=== PATIENT | male | born 2000 | race American Indian/Alaskan Native ===

== ENCOUNTER 2023-11-23 11:56 | Emergency (ER) | payer OTHER, BC, SELFPAY ==
[2023-11-23 12:03] VITALS: BP 152/82; PULSE 76; RESP 18; TEMP 36.8; O2SAT 99; BMI 27.3
--- NOTE | 2023-11-23 12:13 | XR_ITS ---
Patient: MARIA L LEWIS Facility:?[facility] Patient ID:?[id number] Site Patient ID:?[id number]. Site :?[id number] Study:?XRay-Extremity Right 3V KNEE-11/23/2023 1:05:55 PM Ordering Physician:?DR. BRUCE Final Report: Indication: Knee injury Technique: Three views Comparison: None Findings/Impression: Bones: Linear ossific density near the medial femoral condyle suggestive of a medial collateral ligament avulsion. Minimal ossific density at the lateral aspect of the patellofemoral joint consistent with dystrophic calcification or age-indeterminate avulsion fragment. Joint spaces: No dislocation. Soft tissues: Mild medial soft tissue swelling. Dictated by Ubaldo Alexander MD @ 11/23/2023 1:13:13 PM Signed by:?Ubaldo Alexander MD @11/23/2023 1:13:13 PM (Electronic Signature)
--- NOTE | 2023-11-23 12:18 | ED.GENADULT ---
HPI - General Adult General Date Seen: 11/23/23 Chief complaint: Extremity Pain/Injury, Lower Stated complaint: knee injury Time Seen by Provider: 11/23/23 12:08 Source: patient Mode of arrival: ambulatory Limitations: no limitations History of Present Illness HPI narrative: Patient is a 23-year-old male with a history of patellar tendon repair, he is not sure exactly when that was done or who did it, only that it was done in [place]. Today he was getting out of a tractor, planted his foot and then twisted his knee. He complains of medial knee pain by the incision of his surgery. He is worried about damage to the repair. No significant swelling. No other injuries or complaints. Related Data Home Medications Medication Instructions Recorded Confirmed No Known Home Medications 11/23/23 11/23/23 Allergies Allergy/AdvReac Type Severity Reaction Status Date / Time No Known Drug Allergies Allergy Verified 11/23/23 12:06 PFSH PFSH Social History Smoking Status: Never smoker Do you use any of these nicotine containing products: None Second hand tobacco smoke exposure: No How often do you have a drink containing alcohol: never AUDIT-C Alcohol total score: 0 Non-prescribed substance use: denies use Exam Narrative: Exam Narrative: Vital signs reviewed In general, alert, nontoxic male. Looks comfortable. Ambulatory. Extremities: Examination of the right knee shows a well-healed incision over the medial knee, some tenderness right over that incision. Otherwise the knee is nontender, patellar tendon is normal to palpation without tenderness or defect. He has full active range of motion of the knee. There is no effusion. Const: Vital Signs, click to edit/add: Vital Signs - 24 hr 11/23/23 12:03 Temperature 98.3 F Pulse Rate [Right Pulse Oximeter] 76 Respiratory Rate 18 Blood Pressure [Ri ght Upper Arm] 152/82 H Pulse Oximetry 99 Oxygen Delivery Me thod Room Air Documenting provider has reviewed patient's vital signs: yes Course Course ED Course: Patient had an x-ray of the right knee. By my review does shows a tiny sliver of bone off of the distal femur medially, there is also small perhaps avulsion fracture noted on the sunrise you. Final radiology read as follows:Findings/Impression: Bones: Linear ossific density near the medial femoral condyle suggestive of a medial collateral ligament avulsion. Minimal ossific density at the lateral aspect of the patellofemoral joint consistent with dystrophic calcification or age-indeterminate avulsion fragment. Joint spaces: No dislocation. Soft tissues: Mild medial soft tissue swelling. He does have tenderness over the medial femur in the area of that a little avulsion, he says that he remembers being told that he may be had a tear of his MCL or may be a meniscus when he had his prior knee surgery, so I am not certain that that is acute, but I do think it is possibility that he has an MCL sprain with a little avulsion fracture there. I recommended conservative management for now, ice, ibuprofen and Tylenol. I would like him to follow up with Orthopedics, discussed that we do not see good soft tissue anatomy on x-ray, an MRI may be indicated as an outpatient to further evaluate this. He can schedule with his prior orthopedic surgeon or can see 1 of our surgeons here. Weightbear as tolerated. Return for acute severe symptoms. Vital Signs Vital signs: Initial Vital Signs Temperature 98.3 F 11/23/23 12:03 Temperature Source Temporal Artery Scan 11/23/23 12:03 Pulse Rate 76 11/23/23 12:03 Pulse Rhythm Regular 11/23/23 12:03 Pulse Strength 3+ Normal 11/23/23 12:03 Respiratory Rate 18 11/23/23 12:03 Blood Pressure 152/82 H 11/23/23 12:03 Blood Pressure Mean 105 11/23/23 12:03 Pulse Oximetry 99 11/23/23 12:03 Oxygen Delivery Method Room Air 11/23/23 12:03 Vital Signs Temperature 98.3 F 11/23/23 12:03 Pulse Rate 76 11/23/23 12:03 Respiratory Rate 18 11/23/23 12:03 Blood Pressure 152/82 H 11/23/23 12:03 Pulse Oximetry 99 11/23/23 12:03 Oxygen Delivery Method Room Air 11/23/23 12:03 Temperature 98.3 F 11/23/23 12:03 Pulse Rate 76 11/23/23 12:03 Respiratory Rate 18 11/23/23 12:03 Blood Pressure 152/82 H 11/23/23 12:03 Pulse Oximetry 99 11/23/23 12:03 Oxygen Delivery Method Room Air 11/23/23 12:03 Discharge Plan Discharge Clinical Impression: Knee MCL sprain Patient Disposition: Home, Self-Care Condition: Stable Instructions: Knee Sprain (ED) Additional Instructions: Ibuprofen 400 mg plus or minus Tylenol 1000 mg 3 times daily with food as needed for the next several days to week. Ice 15-20 minutes 3 or 4 times a day for the next several days. Please make an appointment to follow up with Orthopedics, you can see 1 of our orthopedic doctors in [place], . Otherwise, schedule with your prior DrVerito in [place]. Return if needed for new or severe symptoms. Prescriptions: No Action No Known Home Medications Follow Up/Referrals: Provider,Not a Local [Primary Care Provider] - Stand Alone Forms: Tipping Bucket Info Instructions
== END 2023-11-23 13:40 | disposition home or self-care (01) ==
PROVIDERS: Emergency Provider Emergency Medicine
DX: S83.421A Sprain of lateral collateral ligament of right knee, initial encounter (principal)
CPT/HCPCS: 73562; 99283; 99284